=== PATIENT | female | born 1965 | race Caucasian/White ===

== ENCOUNTER 2017-08-15 11:28 | Emergency (ER) | payer OTHER ==
--- NOTE | 2017-08-15 12:13 | RAD ---
FRONTAL VIEW CHEST: Date: 08/15/17 INDICATION: Chest pain, nausea. FINDINGS: Lungs are clear. No free air. Cardiac silhouette is within normal limits of size. IMPRESSION: No acute process. POS: [facility]
[2017-08-15 12:20] LABS: #Basophils 0.1 thou/uL (0.0-0.2); #Eosinphils 0.2 thou/uL (0.0-0.7); #Lymphocytes 2.6 thou/uL (1.20-3.40); #Monocytes 0.5 thou/uL (0.11-0.59); %Basophils 0.9 % (0.0-1.0); %Eosinophils 2.5 % (0.0-10.0); %Lymphocytes 27.5 % (21.0-51.0); %Monocytes 5.5 % (0.0-10.0); %Neutrophils 63.7 % (42.0-75.0); Hemoglobin 12.6 g/dL (12.0-16.0); Mean Corpuscular HGB CONC 33.4 g/dL (32.0-36.0); Mean Corpuscular Hemoglobin 28.8 pg (27.0-31.0); Mean Corpuscular Volume 86.2 fl (81.0-99.0); Mean Platelet Volume 8.2 fL (7.4-10.4); Platelet Count 309 thou/uL (130-400); RBC Distribution Width 11.8 % (11.5-14.5); Red Blood Cell (RBC) Count 4.39 mill/uL (4.20-5.40); White Blood Cell (WBC) Count 9.4 thou/uL (4.8-10.8)
[2017-08-15 12:40] LABS: ALT (SGPT) 15 U/L (8-55); AST (SGOT) 11 U/L (5-34); Albumin 4.2 g/dL (3.5-5.0); Alkaline Phosphatase 47 U/L (40-150); Anion Gap 13 mmol/L (10-20); BUN (Urea Nitrogen) 8 mg/dL (9.8-20.1); Bilirubin, Total 0.6 mg/dL (0.2-1.2); CK (CPK) 89 U/L (29-168); Calc. Creatinine Clearance 0 mL/min (70-130); Calcium 9.3 mg/dL (7.8-10.44); Carbon Dioxide 23 mmol/L (22-29); Chloride 105 mmol/L (98-107); Estimated GFR-MDRD Greater than 90; Globulin 2.7 g/dL (2.4-3.5); Glucose 98 mg/dL (70-105); Potassium 3.8 mmol/L (3.5-5.1); Protein, Total 6.9 g/dL (6.0-8.3); Sodium 137 mmol/L (136-145)
[2017-08-15 12:44] LABS: Troponin I Less than 0.010 ng/mL (< 0.028)
[2017-08-15] MEDS ORDERED: Morphine 4 MG/ML VIAL ONE (13:05)
== END 2017-08-15 13:55 | disposition home or self-care (01) ==
LOC: ERS 11:28
DX: R07.89 Other chest pain (principal); G43.909 Migraine, unspecified, not intractable, without status migrainosus; F32.9 Major depressive disorder, single episode, unspecified; Z87.442 Personal history of urinary calculi
CPT/HCPCS: 36415; 71045; 80053; 82553; 84484; 85025; 93005; 96374; J2270

== ENCOUNTER 2022-04-18 10:26 | Observation (INO) | payer BC ==
[~2022-04-18 10:26] MED LIST: Dexamethasone 20 MG/5 ML VIAL ONE; Ketorolac Tromethamine 30 MG/ML VIAL ONE; Ondansetron PF 4 MG/2 ML Vial ONE; PROPOFOL 200 MG/20 ML VIAL ONE
[2022-04-18] MEDS ORDERED: Promethazine HCl 25 MG/ML VIAL IM PRN (10:59)
[2022-04-18] MEDS ORDERED: Ondansetron HCl/PF 4 MG/2 ML Vial IVP PRN (10:59)
[2022-04-18] MEDS ORDERED: Promethazine HCl 25 MG/ML VIAL IVPB PRN (10:59)
[2022-04-18] MEDS ORDERED: Oxybutynin 5 MG TAB ONE (11:17)
[2022-04-18] MEDS ORDERED: Phenazopyridine HCl 100 MG TAB ONE (11:17)
[2022-04-18] MEDS ORDERED: Ondansetron PF 4 MG/2 ML Vial ONE ×2 (11:21→11:22)
[2022-04-18] MEDS ORDERED: Bisacodyl 5 MG TAB PO PRN (11:26)
[2022-04-18] MEDS ORDERED: Acetaminophen 325 MG TAB PO PRN (11:26)
[2022-04-18] MEDS ORDERED: Mag-Al 1200 mg/1200 mg/30 ML UDCUP PO PRN (11:37)
[2022-04-18] MEDS ORDERED: diphenhydrAMINE 50 MG/ML VIAL IVP PRN (11:37)
[2022-04-18] MEDS ORDERED: Ketorolac Tromethamine 30 MG/ML VIAL IVP PRN (11:37)
[2022-04-18] MEDS ORDERED: Oxybutynin 5 MG TAB PO PRN (11:37)
[2022-04-18] MEDS ORDERED: Phenazopyridine HCl 95 MG TAB PO PRN (11:37)
[2022-04-18] MEDS ORDERED: Phenazopyridine HCl 95 MG TAB PO SCH (12:00)
[2022-04-18] MEDS ORDERED: Oxybutynin 5 MG TAB PO SCH ×2 (12:00→12:45)
[2022-04-18] MEDS ORDERED: Phenazopyridine HCl 100 MG TAB PO SCH ×2 (12:15→12:45)
[2022-04-18] MEDS ORDERED: Phenazopyridine HCl 100 MG TAB PO PRN (12:16)
[2022-04-18] MEDS: Sodium Chloride 0.9% 1,000 ML IV SCH (13:02)
[2022-04-18 13:08] VITALS: BMI 32.4
[2022-04-18] MEDS ORDERED: FLU VACC QS2022-23(6MOS UP)/PF 60 MCG/0.5 ML SYRINGE IM ONE (13:45)
[2022-04-18] MEDS: Docusate 100 MG CAP PO SCH (20:01)
[2022-04-19] MEDS: Sodium Chloride 0.9% 1,000 ML IV SCH (03:21)
[2022-04-19 07:37] LABS: #Eosinphils 0.1 thou/uL (0.0-0.7); #Monocytes 0.6 thou/uL (0.11-0.59); #Neutrophils 7.1 thou/uL (1.40-6.50); %Basophils 0.2 % (0.0-1.0); %Eosinophils 1.1 % (0.0-10.0); %Lymphocytes 27.7 % (21.0-51.0); %Monocytes 5.5 % (0.0-10.0); %Neutrophils 65.5 % (42.0-75.0); Hemoglobin 11.5 g/dL (12.0-16.0); Mean Corpuscular HGB CONC 32.3 g/dL (32.0-36.0); Mean Corpuscular Hemoglobin 28.4 pg (27.0-31.0); Mean Corpuscular Volume 87.8 fl (78.0-98.0); Mean Platelet Volume 9.4 fL (7.4-10.4); Platelet Count 261 10x3/uL (130-400); RBC Distribution Width 11.6 % (11.5-14.5); Red Blood Cell (RBC) Count 4.07 mill/uL (4.20-5.40); White Blood Cell (WBC) Count 10.9 10x3/uL (4.8-10.8)
[2022-04-19 07:49] LABS: Anion Gap 13 mmol/L (10-20); BUN (Urea Nitrogen) 8 mg/dL (9.8-20.1); Calc. Creatinine Clearance 133 mL/min (70-130); Carbon Dioxide 24 mmol/L (22-29); Chloride 108 mmol/L (98-107); Estimated GFR 104; Glucose 105 mg/dL (70-105); Potassium 3.7 mmol/L (3.5-5.1); Sodium 141 mmol/L (136-145)
[2022-04-19] MEDS: Docusate 100 MG CAP PO SCH (08:18)
[2022-04-19 08:29] VITALS: TEMP 98
[2022-04-19 11:00] VITALS: BP 150/89
== END 2022-04-19 11:34 | disposition home or self-care (01) ==
LOC: SDC 10:26 → T4-B 10:28 → INTOOBSV 10:28
PROVIDERS: ADMIT Internal Medicine; ATTEND Internal Medicine
PROC: 0T778DZ Dilation of Left Ureter with Intraluminal Device, Via Natural or Artificial Opening Endoscopic (ICD-10-PCS; principal; 2022-04-18)
DX: N13.6 Pyonephrosis (principal); Q62.8 Other congenital malformations of ureter; G43.909 Migraine, unspecified, not intractable, without status migrainosus; E78.5 Hyperlipidemia, unspecified; Z87.11 Personal history of peptic ulcer disease; Z88.5 Allergy status to narcotic agent; Z98.84 Bariatric surgery status
CPT/HCPCS: 36415; 74420; 80048; 85025; 87086; 90471; 90686; C2617; G0008; G0378; J1100; J1885; J2405; J2704; J7050

== ENCOUNTER 2022-08-23 15:49 | Outpatient (CLI) | payer BC | END 2022-08-23 15:50 | disposition home or self-care (01) | LOC: ULT 15:49 | PROVIDERS: ATTEND Urology | DX: N20.0 Calculus of kidney (principal); Q62.8 Other congenital malformations of ureter; Z98.890 Other specified postprocedural states | CPT/HCPCS: 76770 ==

== ENCOUNTER 2024-04-02 15:47 | Outpatient (CLI) | payer BC | END 2024-04-02 15:48 | disposition home or self-care (01) | LOC: BICMAMMO 15:47 | PROVIDERS: ATTEND Family Medicine | DX: Z12.31 Encounter for screening mammogram for malignant neoplasm of breast (principal) | CPT/HCPCS: 77063; 77067 ==